=== PATIENT | female | born 1975 | race Caucasian/White ===

== ENCOUNTER → 2017-05-20 | Outpatient (CLI) | payer BC ==
--- NOTE | 2017-05-22 07:14 | MM ---
Reason for exam: screening (asymptomatic). Last mammogram was performed 1 year and 4 months ago. History: Family history of breast cancer in mother at age 61. Excisional biopsy of the left breast, 2008. Took hormonal contraceptives for 10 years beginning at age 16. Physical Findings: A clinical breast exam by your physician is recommended on an annual basis and results should be correlated with mammographic findings. MG 3D Screening Mammo W/Cad Bilateral CC and MLO view(s) were taken. Prior study comparison: January 22, 2016, bilateral MG screening mammo w CAD. December 28, 2014, bilateral MG screening mammo w CAD. There are scattered fibroglandular densities. Finding #1: There is a stable architectural distortion in the upper quadrant of the left breast. Finding #2: There are typically benign round calcifications in both breasts. There is a chronic nodularity bilaterally. There are a few tiny new nodules in the right breast under 5mm. ASSESSMENT: Benign, BI-RAD 2 RECOMMENDATION: Routine screening mammogram of both breasts in 1 year.
== END | disposition home or self-care (01) ==
LOC: RADMAMWWP 10:52
PROVIDERS: ATTEND Obstetrics & Gynecology
DX: Z12.31 Encounter for screening mammogram for malignant neoplasm of breast (principal); Z80.3 Family history of malignant neoplasm of breast
CPT/HCPCS: 77063; G0202